=== PATIENT | male | born 1960 | race Caucasian/White ===

== ENCOUNTER → 2016-08-17 | Outpatient (CLI) | payer BC ==
--- NOTE | 2016-08-17 18:50 | ECGEPIP ---
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
== END ==
LOC: M EKG 07:06
PROVIDERS: ATTEND Orthopaedic Surgery
DX: Z01.818 Encounter for other preprocedural examination (principal)

== ENCOUNTER → 2016-11-26 | Outpatient (REF) | payer BC | LOC: M LAB REF 17:21 | PROVIDERS: ATTEND Physician Assistant Medical | DX: R19.7 Diarrhea, unspecified (principal) ==

== ENCOUNTER → 2022-12-20 | Outpatient (CLI) | payer BC | LOC: M RAD 15:11 | PROVIDERS: ATTEND Internal Medicine | DX: R42 Dizziness and giddiness (principal) ==

== ENCOUNTER 2024-07-04 10:44 | Day surgery (SDC) | payer BC ==
[~2024-07-04] VITALS: Ht 172.7 cm; Wt 86.1 kg
[2024-07-04] MEDS ORDERED: fentaNYL 100 MCG/2 ML INJECTION As Ordered ONE (10:55)
[2024-07-04 12:00] VITALS: TEMP 97.6
[2024-07-04] MEDS ORDERED: propofoL 200 MG/20 ML VIAL As Ordered ONE (12:04)
[2024-07-04] MEDS ORDERED: LIDOCAINE 2% 100MG/5ML SDV (FOR ANES.) As Ordered ONE (12:04)
[2024-07-04 12:20] VITALS: BP 118/67; O2SAT 96
== END 2024-07-04 12:40 | disposition home or self-care (01) ==
LOC: M OPP 10:44
PROVIDERS: ATTEND Surgery
DX: Z12.11 Encounter for screening for malignant neoplasm of colon (principal); Z80.0 Family history of malignant neoplasm of digestive organs; K21.00 Gastro-esophageal reflux disease with esophagitis, without bleeding; K31.89 Other diseases of stomach and duodenum; K57.10 Diverticulosis of small intestine without perforation or abscess without bleeding; J45.909 Unspecified asthma, uncomplicated
CPT/HCPCS: 43239; 45378; 88305; J3010